=== PATIENT | male | born 1985 | race Caucasian/White ===

== ENCOUNTER 2019-12-06 14:17 | Emergency (ER) | payer SELFPAY ==
[~2019-12-06] VITALS: Ht 175.3 cm; Wt 65.8 kg
[2019-12-06 14:21] VITALS: BP_SYST 123
--- NOTE | 2019-12-06 14:21 | NUR ---
Patient to ER bed 01 to gown for evaluation. Side rails up.
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
[2019-12-06] MEDS ORDERED: levETIRAcetam 500 MG IV PREMIX 100 ML IV ONE (14:45)
--- NOTE | 2019-12-06 14:45 | NUR ---
ER at bedside examining patient.
--- NOTE | 2019-12-06 14:48 | NUR ---
patient refused keeppra ivpb.MD mari aware.
[2019-12-06 14:50] VITALS: BP_SYST 123
--- NOTE | 2019-12-06 14:50 | NUR ---
Patient given written and verbal discharge instructions and verbalizes understanding. ER MD discussed with patient the results and treatment provided. Patient in stable condition. ID arm band removed. IV catheter removed intact and dressing applied, no active bleeding. Rx of keppra given. Patient educated on pain management and to follow up with PMD. Pain Scale 0. Opportunity for questions provided and answered. Medication side effect fact sheet provided. patient informed by law need to report to the DMV.pt verbalized understanding.
== END 2019-12-06 14:50 | disposition home or self-care (01) ==
LOC: SED 14:17
DX: G40.909 Epilepsy, unspecified, not intractable, without status epilepticus (principal)
CPT/HCPCS: 82962; 99283; J1953